=== PATIENT | male | born 1940 | race Caucasian/White ===

== ENCOUNTER 2020-04-02 11:45 | Outpatient (CLI) | payer MEDICARE ==
[2020-04-02 14:46] LABS: Hemoglobin 14.2 g/dL (13.5-17.5); Mean Corpuscular HGB CONC 32.3 g/dL (32.0-36.0); Mean Corpuscular Volume 86.8 fl (81.2-95.1); Mean Platelet Volume 9.4 fl (7.4-10.4); Platelet Count 227 10x3/uL (150-450); RBC Distribution Width 13.8 % (11.5-14.5); Red Blood Cell (RBC) Count 5.07 10x6/uL (4.32-5.72); White Blood Cell (WBC) Count 6.9 10x3/uL (3.5-10.5)
[2020-04-02 15:03] LABS: INR-International Normal Ratio 1.2
[2020-04-02 15:17] LABS: Anion Gap 14 mmol/L (10-20); BUN (Urea Nitrogen) 17 mg/dL (8.4-25.7); Calc. Creatinine Clearance 0 mL/min (70-130); Calcium 9.6 mg/dL (7.8-10.44); Carbon Dioxide 27 mmol/L (23-31); Chloride 107 mmol/L (98-107); Glucose 81 mg/dL (83-110); Potassium 4.6 mmol/L (3.5-5.1); Sodium 143 mmol/L (136-145)
[2020-04-02 22:37] LABS: SARS-CoV-2 PCR by NAA Not Detected (NotDetected)
== END 2020-04-02 11:46 | disposition home or self-care (01) ==
LOC: LABBT 11:45
PROVIDERS: ATTEND Internal Medicine Cardiovascular Disease
DX: Z01.812 Encounter for preprocedural laboratory examination (principal); I48.0 Paroxysmal atrial fibrillation; Z20.822 Contact with and (suspected) exposure to COVID-19
CPT/HCPCS: 80048; 85027; 85610; U0003; U0005; 87635

== ENCOUNTER → 2020-04-07 | Day surgery (SDC) | payer MEDICARE ==
[2020-04-06 13:10] VITALS: BMI 24.7
[~2020-04-07] MED LIST: Dexamethasone 20 MG/5 ML VIAL ONE; Esmolol 100 MG/10 ML VIAL ONE; Fentanyl 100 MCG/2 ML VIAL ONE; Glycopyrrolate 0.2 MG/ML 5 ML SYRINGE ONE; Heparin 10,000 UNITS/ 10 ML VIAL ONE; Heparin 2,000 ML ONE; Heparin 25,000 units/D5W 500 ML ONE; Lidocaine 1% (PF) 30 ML VIAL ONE; Lidocaine 1% PF 5 ML VIAL ONE; Ondansetron PF 4 MG/2 ML Vial ONE; PHENYLEPHRINE-NS 100 MCG/ML 10 ML SYRINGE ONE; PROPOFOL 200 MG/20 ML VIAL ONE; Protamine Sulfate 50 MG/5 ML VIAL ONE; Rocuronium Bromide 10 MG/ML (10ML VIAL) ONE; ePHEDrine 50 MG/ML VIAL ONE
--- NOTE | 2020-04-07 15:25 | OP ---
DATE OF PROCEDURE: 04/07/2020 PRIMARY CARE PHYSICIAN: Colin Jolly MD. REFERRING [employer] TECHNICIAN: Dr. Ricky Greenwood. PREOPERATIVE DIAGNOSIS: Paroxysmal atrial fibrillation. POSTOPERATIVE DIAGNOSIS: Paroxysmal atrial fibrillation. PROCEDURES PERFORMED: 1. Pulmonary vein isolation. 2. Ablation of additional arrhythmia focus left atrium near the anterior mitral annulus. 3. 3D mapping of arrhythmia. 4. Intracardiac echocardiography. ANESTHESIA: General endotracheal. ASSISTANTS: None. SPECIMENS: None. ESTIMATED BLOOD LOSS: 20 mL. COMPLICATIONS: None. DESCRIPTION OF PROCEDURE: Risks, benefits, and alternatives of transesophageal echocardiogram and radiofrequency ablation were discussed prior to the procedure including, but not limited to myocardial infarction, stroke, , damage to oropharyngeal or esophageal structures, need for permanent pacemaker, damage to vascular structures, need for emergent surgery, pericardial effusion, pain, and allergic reaction. The patient was brought electively to the electrophysiology lab. The patient was intubated by anesthesia. Transesophageal echocardiogram showed no evidence of thrombus with normal-sized left atrium, ejection fraction 60%. Normal valvular structures with mild mitral regurgitation. Esophageal temperature probe was placed and adjusted throughout the case to monitor esophageal temperature. Using ultrasound guidance, two long 7-Burkinan sheaths were placed in the left femoral vein and two Lamp 45 sheaths were placed in the right femoral vein. Heparin was given prior to transseptal catheterization and adjusted throughout the case for target ACT greater than 300 seconds. Decapolar catheter was placed in the left atrium. Left atrial pacing and recording was performed. A 7-Burkinan sheath was exchanged for a long 9-Burkinan sheath and intracardiac echo catheter was placed. Intracardiac echo was used to guide the ablation and transseptal catheterization. Using a [place] needle, two transseptal catheterizations were performed. One Lamp 45 sheath was exchanged over a guidewire for an Agilis sheath. Using HD grid catheter, 3D mapping of the left atrium was performed. Using a TactiCath D/F ablation catheter, radiofrequency energy was applied in the left atrium at 50 kinney. All four veins were isolated. The patient continued to have significant atrial ectopy; therefore, the atrial ectopy was mapped to the left atrium anterior mitral annulus. Radiofrequency energy was applied in this additional arrhythmia focus which resulted in cessation of the arrhythmia. The sheaths were pulled back to the right atrium. Heparin was discontinued. Protamine was given. Sheaths were pulled. Vascade closure devices were used for closure. The patient was extubated and transferred to the recovery area in good condition. CONCLUSION: 1. Paroxysmal atrial fibrillation. 2. Successful pulmonary vein isolation with ablation of additional focus at the anterior mitral annulus. PLAN: 1. Restart Xarelto tonight. 2. Protonix 40 mg daily for 3 months. 3. Follow up with MAGDALENA Booth, April 28 at 10:30 a.m. Job ID: [id number]
== END ==
LOC: CCL 06:01
PROVIDERS: ATTEND Internal Medicine Cardiovascular Disease
PROC: 02583ZZ Destruction of Conduction Mechanism, Percutaneous Approach (ICD-10-PCS; principal; 2020-04-07)
PROC: 02K83ZZ Map Conduction Mechanism, Percutaneous Approach (ICD-10-PCS; 2020-04-07)
PROC: B24BZZ4 Ultrasonography of Heart with Aorta, Transesophageal (ICD-10-PCS; 2020-04-07)
DX: I48.0 Paroxysmal atrial fibrillation (principal); I34.0 Nonrheumatic mitral (valve) insufficiency; I48.3 Typical atrial flutter; I10 Essential (primary) hypertension; Z79.01 Long term (current) use of anticoagulants; Z79.899 Other long term (current) drug therapy; Z87.891 Personal history of nicotine dependence; Z91.013 Allergy to seafood; Z95.0 Presence of cardiac pacemaker
CPT/HCPCS: 76942; 85347; 93005; 93312; 93613; 93656; 93657; 93662; C1732; C1753; C1894; C2630; J1100; J1644; J2001; J2405; J2704; J2720; J3010; J3490